=== PATIENT | female | born 1985 | race Caucasian/White ===

== ENCOUNTER 2023-03-30 20:46 | Inpatient (IN) | payer OTHER, MEDICAID, SELFPAY ==
[2023-03-30 20:51] VITALS: BP 126/83; PULSE 65; RESP 18; TEMP 36.8; O2SAT 98
[2023-03-30 20:55] VITALS: BMI 44.8
--- NOTE | 2023-03-30 21:16 | PC.NURSE ---
Pt arrived via EMS transport from [facility], pt is anxious. Appears well kept, is cooperative. Assessment completed.
[2023-03-30] MEDS: BuSPIRONE 10 mg Tablet PO (23:17)
[2023-03-30] MEDS: duloxetine 60 mg Capsule PO (23:17)
[2023-03-30] MEDS: CLONazepam 1 mg Tablet PO (23:17)
[2023-03-30] MEDS: duloxetine 30 mg Capsule PO (23:17)
[2023-03-30] MEDS: mirtazapine 15 mg Tablet PO (23:17)
[2023-03-31 06:00] VITALS: BP 112/77; PULSE 66; RESP 16; O2SAT 93
[2023-03-31] MEDS: duloxetine 30 mg Capsule PO ×2 (08:13→20:08)
[2023-03-31] MEDS: CLONazepam 1 mg Tablet PO ×3 (08:13→20:09)
[2023-03-31] MEDS: BuSPIRONE 10 mg Tablet PO (08:13)
[2023-03-31] MEDS: levothyroxine 125 mcg Tablet PO (09:23)
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
[2023-03-31] MEDS: hyDROXYzine 25 mg Capsule 50 MG PO (12:11)
[2023-03-31 13:29] VITALS: BP 124/82; PULSE 70; RESP 16; TEMP 36.6; O2SAT 98
[2023-03-31] MEDS: propranolol 20 mg Tablet PO (17:55)
[2023-03-31] MEDS: duloxetine 60 mg Capsule PO (20:08)
[2023-03-31] MEDS: lurasidone 20 mg Tablet 40 MG PO (20:09)
[2023-03-31] MEDS: mirtazapine 15 mg Tablet 7.5 MG PO (20:09)
[2023-03-31 20:11] VITALS: BP 127/85; PULSE 77; RESP 18; TEMP 36.5; O2SAT 94
[2023-04-01 06:00] VITALS: BP 116/82; PULSE 76; RESP 18; TEMP 36.7; O2SAT 98
[2023-04-01] MEDS: duloxetine 30 mg Capsule PO (08:39)
[2023-04-01] MEDS: propranolol 20 mg Tablet PO ×2 (08:39→17:10)
[2023-04-01] MEDS: levothyroxine 125 mcg Tablet PO (08:39)
[2023-04-01] MEDS: ARIPiprazole 2 mg Tablet PO (08:39)
[2023-04-01] MEDS: CLONazepam 1 mg Tablet PO ×3 (08:39→21:36)
--- NOTE | 2023-04-01 11:36 | PC.NURSE ---
Pt disclosed to this nurse that she purchased a kitchen knife to use for self harm and has hidden it in her car. Pt disclosed that she does not wish to tell her this information at this time.
[2023-04-01] MEDS: hyDROXYzine 25 mg Capsule 50 MG PO (11:57)
[2023-04-01 14:00] VITALS: BP 128/86; PULSE 91; RESP 17; TEMP 36.4; O2SAT 98
--- NOTE | 2023-04-01 15:49 | P.NPUPN_ITS ---
Subjective NPU Subjective: 38-year-old white female history of borderline personality disorder, chronic suicidal ideation, and major depressive disorder admitted with suicidal ideation with [place] She had reported 7 hospitalizations over the last 12 months. She had reported a history of multiple medication trials. She had continued to endorse feelings of hopelessness. She had acknowledged having recently cut her arm. She had reported that she had been frustrated with not having had DBT therapy yet. She had reported a 1 year waiting list for therapy. She reported some intense feelings of guilt. She had reported that she was doing her best but had really been struggling with her depression. She had reported increased stress at home. She reported that her had been supportive. Mental Status Exam MSE Comments: Casually dressed white female who was overweight, with an unkempt appearance. Her gait was within normal limits. She was cooperative on interview. There was evidence of psychomotor retardation. Her speech was slow with normal prosody and volume. She was alert and oriented to person place time and situation. Her mood was described as depressed. Her affect was restricted in range and mood congruent. Her thought process was linear logical and goal-directed. Her thought content showed no evidence of active homicidal ideation. She had reported suicidal ideation along with thoughts of self injury. There is no clear evidence of delusional thinking. She did not appear to be responding to internal stimuli. There were clear healed cuts on her left wrist. Her impulse control appeared poor. Her insight is poor. Judgment is poor. Her recent and remote memory appeared grossly intact she was a good historian. Her fund of knowledge appeared above average. Vitals/I&O/Wt Last Vital Signs Temp 97.5 F L 04/01/23 14:00 Pulse 91 04/01/23 14:00 Resp 17 04/01/23 14:00 BP 128/86 04/01/23 14:00 Pulse Ox 98 04/01/23 14:00 O2 Del Method Room Air 04/01/23 06:00 Weight last 48 hrs Weight 111.13 kg A&P Assessment and plan (1) Suicidal ideation: (2) Borderline personality disorder: (3) Major depressive disorder, recurrent severe without psychotic features: (4) PTSD (post-traumatic stress disorder): Plan Patient is a 38-year-old white female with chronic suicidality endorsing plan to jump into the [facility] with borderline personality traits, PTSD and major depressive disorder he was unable to contract for safety. She will require inpatient hospitalization at this time with likely adjustment in her medications. 1.?Encourage individual, group and milieu therapy. 2.?Recommend sober living treatment at the highest level of care to which the patient is willing to commit. 3.??? Continue q-15 minute checks for safety.? 4. Discontinued Remeron, tapering latuda now at 20mg at night with discontinuation tommorow. Increase abilify to 5mg daily adjunctively for treatment of depression. 5. Will attempt to gather collateral information. Involuntary Hold Information 96 Hour Hold: 96 Hour Involuntary Admission: No Attestations NPU Medical Necessity Statement*: Inpatient hospitalization is medically necessary and deemed to be the clinically appropriate intervention at this time. We will monitor and adjust medications as indicated. Her likely length of stay is 5 to 7 days. Coding Level of Care Code Acute Code for [facility] Diagnoses Suicidal ideation R45.851 Borderline personality disorder F60.3 Major depressive disorder, recurrent severe without psychotic features F33.2 PTSD (post-traumatic stress disorder) F43.10
[2023-04-01] MEDS: neomycin-poly-bacitracin oint 28 gm 1 APPLIC TOPICAL (17:33)
[2023-04-01] MEDS: ibuprofen 600 mg Tablet PO (18:18)
[2023-04-01 21:13] VITALS: BP 132/95; PULSE 80; RESP 18; O2SAT 97
[2023-04-01] MEDS: duloxetine 30 mg Capsule 90 MG PO (21:37)
[2023-04-01] MEDS: acetaminophen 325 mg Tablet 650 MG PO (21:37)
[2023-04-01] MEDS: lurasidone 20 mg Tablet PO (21:38)
[2023-04-01] MEDS: trazodone 50 mg Tablet PO (23:30)
--- NOTE | 2023-04-02 04:22 | PC.NURSE ---
PT STAYED UP TIL APPROXIMATELY TIL 1200 AM WATCHING TV. PT WAS GIVEN TRAZODONE 50 MG FOR SLEEP. PT HAS RESTED WITHOUT COMPLAINTS SINCE THEN. MEDICATION EFFECTIVE.
[2023-04-02 06:00] VITALS: BP 116/78; PULSE 90; RESP 16; O2SAT 98
[2023-04-02] MEDS: ARIPiprazole 2 mg Tablet 5 MG PO (09:19)
[2023-04-02] MEDS: propranolol 20 mg Tablet PO ×2 (09:20→17:48)
[2023-04-02] MEDS: duloxetine 30 mg Capsule PO (09:20)
[2023-04-02] MEDS: levothyroxine 125 mcg Tablet PO (09:20)
[2023-04-02] MEDS: CLONazepam 1 mg Tablet PO ×3 (09:20→21:08)
[2023-04-02] MEDS: blistex lip oint 7 gm Tube 1 APPLIC TOPICAL (10:10)
[2023-04-02] MEDS: hyDROXYzine 25 mg Capsule 50 MG PO (11:15)
[2023-04-02] MEDS: OLANZapine 5 mg ODT PO (12:10)
--- NOTE | 2023-04-02 12:10 | PC.NURSE ---
Patient reporting anxiedty 04/30. Patient has had Vistaril previoulsy, but this did not alleviate anxiety. Patient reports anxiety caused by feeling guilty for being here instead of at home with her family. Encouraged patient to take some time to practice deep breathing exercises. Administered 5mg Zyprexa to patient. will continue to monitor.
[2023-04-02 14:00] VITALS: BP 126/89; PULSE 120; RESP 17; O2SAT 97
--- NOTE | 2023-04-02 18:07 | P.NPUPN_ITS ---
Subjective NPU Subjective: Patient is in today reporting that she was feeling a little better. She reports that the Cymbalta has been helpful and she has tolerated the changes in medications thus far. We discussed discontinuing the Latuda tomorrow and the risks, benefits and alternatives of switching to Abilify and she understood agreed proceed as documented in this note. We continue to discuss the ultimate plan of getting her in a DBT program. Mental Status Exam MSE Comments: This is an obese [place] obese white female with hospital scrubs with limited grooming and eye contact. No analytics for mild psychomotor retardation. Most cooperative exam in mild distress. Speech was decreased rate and volume. Mood described as okay, affect slightly subdued. Thought process organized. Thought content: Patient denied suicidal or homicidal ideation, there were no delusions reported or noted, she denied any auditory hallucinations. Attention concentration appeared intact and memory was mostly liable but not were formally tested. She alert and oriented x3. Insight and judgment are limited and impulse control is impaired. Vitals/I&O/Wt Last Vital Signs Temp 97.6 F 04/02/23 20:51 Pulse 90 04/02/23 20:51 Resp 17 04/02/23 20:51 BP 136/88 04/02/23 20:51 Pulse Ox 97 04/02/23 20:51 O2 Del Method Room Air 04/02/23 20:51 A&P Assessment and plan (1) Suicidal ideation: (2) Borderline personality disorder: (3) Major depressive disorder, recurrent severe without psychotic features: (4) PTSD (post-traumatic stress disorder): Plan Patient is a 38-year-old white female with chronic suicidality endorsing plan to jump into the [facility] with borderline personality traits, PTSD and major depressive disorder he was unable to contract for safety. She will require inpatient hospitalization at this time with likely adjustment in her medications. 1.?Encourage individual, group and milieu therapy. 2.?Recommend sober living treatment at the highest level of care to which the patient is willing to commit. 3.??? Continue q-15 minute checks for safety.? 4. Discontinued Remeron, tapering latuda now at 20mg at night with discontinuation tomorrow night. Increase abilify to 5mg daily adjunctively for treatment of depression. 5. Will attempt to gather collateral information. Involuntary Hold Information 96 Hour Hold: 96 Hour Involuntary Admission: No Attestations NPU Medical Necessity Statement*: Inpatient hospitalization is medically necessary and deemed to be the clinically appropriate intervention at this time. We will monitor and adjust medications as indicated. Her likely length of stay is 4-6 days. Coding Level of Care Code Acute Code for [facility] Fwd Diagnoses Suicidal ideation R45.851 Borderline personality disorder F60.3 Major depressive disorder, recurrent severe without psychotic features F33.2 PTSD (post-traumatic stress disorder) F43.10
[2023-04-02 20:51] VITALS: BP 136/88; PULSE 90; RESP 17; TEMP 36.4; O2SAT 97
[2023-04-02] MEDS: duloxetine 30 mg Capsule 90 MG PO (21:07)
[2023-04-02] MEDS: lurasidone 20 mg Tablet PO (21:08)
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
[2023-04-02] MEDS: trazodone 50 mg Tablet PO (23:05)
--- NOTE | 2023-04-03 03:23 | PC.NURSE ---
PT REQUESTED TRAZODONE FOR INSOMNIA. PT WAS GIVE TRAZODONE 50 MG ORDERED. PT WENT TO BED SHORTLY AFTER AND HAS BEEN RESTING SINCE. CURRENTLY IN BED SLEEPING. NO DISTRESS NOTED AT THIS TIME.
[2023-04-03 06:00] VITALS: BP 134/82; PULSE 92; RESP 20; TEMP 36.3; O2SAT 98
[2023-04-03] MEDS: levothyroxine 125 mcg Tablet PO (06:16)
[2023-04-03] MEDS: OLANZapine 5 mg ODT PO ×2 (07:13→11:49)
[2023-04-03] MEDS: duloxetine 30 mg Capsule PO (08:17)
[2023-04-03] MEDS: propranolol 20 mg Tablet PO ×2 (08:17→20:17)
[2023-04-03] MEDS: ARIPiprazole 2 mg Tablet 5 MG PO (08:17)
[2023-04-03] MEDS: CLONazepam 1 mg Tablet PO ×3 (08:17→20:17)
[2023-04-03] MEDS: neomycin-poly-bacitracin oint 28 gm 1 APPLIC TOPICAL ×2 (08:18→20:16)
[2023-04-03] MEDS: hyDROXYzine 25 mg Capsule 50 MG PO ×2 (13:56→21:51)
[2023-04-03 14:00] VITALS: BP 104/70; PULSE 78; RESP 16; TEMP 36.6; O2SAT 97
--- NOTE | 2023-04-03 14:40 | P.NPUPN_ITS ---
Subjective NPU Subjective: Patient presented today reporting that she feels that she is getting better. She is working with the social work team to make sure that DBT therapy is available at discharge. We agree that we would discharge her in the morning but were able to advise her that there is a knife in the vehicle but he is going to pick her up and go to the vehicle himself prior to her having access again. She reports that she feels better overall and is looking forward to discharge tomorrow morning. Mental Status Exam MSE Comments: This is an obese [place] obese white female with hospital scrubs with limited grooming and eye contact. No analytics for mild psychomotor retardation. Most cooperative exam in mild distress. Speech was decreased rate and volume. Mood described as okay, affect slightly subdued. Thought process organized. Thought content: Patient denied suicidal or homicidal ideation, there were no delusions reported or noted, she denied any auditory hallucinations. Attention concentration appeared intact and memory was mostly liable but not were formally tested. She alert and oriented x3. Insight and judgment are limited and impulse control is impaired. Vitals/I&O/Wt Last Vital Signs Temp 97.4 F L 04/03/23 06:00 Pulse 92 04/03/23 06:00 Resp 20 H 04/03/23 06:00 BP 134/82 04/03/23 06:00 Pulse Ox 98 04/03/23 06:00 O2 Del Method Room Air 04/03/23 06:00 A&P Assessment and plan (1) Suicidal ideation: (2) Borderline personality disorder: (3) Major depressive disorder, recurrent severe without psychotic features: (4) PTSD (post-traumatic stress disorder): Plan Patient is a 38-year-old white female with chronic suicidality endorsing plan to jump into the [facility] with borderline personality traits, PTSD and major depressive disorder he was unable to contract for safety. She will require inpatient hospitalization at this time with likely adjustment in her medications. 1.?Encourage individual, group and milieu therapy. 2.?Recommend sober living treatment at the highest level of care to which the patient is willing to commit. 3.??? Continue q-15 minute checks for safety.? 4. Discontinued Remeron, tapering latuda continued 04/02/2023. Increased abilify to 5mg daily adjunctively for treatment of depression. 5. Will attempt to gather collateral information. Involuntary Hold Information 96 Hour Hold: 96 Hour Involuntary Admission: No Attestations NPU Medical Necessity Statement*: Inpatient hospitalization is medically necessary and deemed to be the clinically appropriate intervention at this time. We will monitor and adjust medications as indicated. Her likely length of stay is 1-3 days. Coding Level of Care Code Acute Code for [facility] Fwd Diagnoses Suicidal ideation R45.851 Borderline personality disorder F60.3 Major depressive disorder, recurrent severe without psychotic features F33.2 PTSD (post-traumatic stress disorder) F43.10
[2023-04-03] MEDS: duloxetine 30 mg Capsule 90 MG PO (20:17)
[2023-04-03 20:43] VITALS: BP 122/86; PULSE 111; RESP 18; TEMP 36.6; O2SAT 98
[2023-04-03] MEDS: ibuprofen 600 mg Tablet PO (21:51)
[2023-04-03] MEDS: trazodone 50 mg Tablet PO (23:51)
[2023-04-04] MEDS: trazodone 50 mg Tablet PO (00:41)
[2023-04-04] MEDS: OLANZapine 5 mg ODT PO (00:41)
[2023-04-04 06:00] VITALS: BP 112/74; PULSE 83; RESP 16; O2SAT 98
[2023-04-04] MEDS: hyDROXYzine 25 mg Capsule 50 MG PO (07:26)
[2023-04-04] MEDS: levothyroxine 125 mcg Tablet PO (07:27)
[2023-04-04] MEDS: ARIPiprazole 2 mg Tablet 5 MG PO (08:40)
[2023-04-04] MEDS: CLONazepam 1 mg Tablet PO (08:42)
[2023-04-04] MEDS: propranolol 20 mg Tablet PO (08:42)
[2023-04-04] MEDS: duloxetine 30 mg Capsule PO (08:42)
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
[2023-04-04 08:58] VITALS: BP 112/74; PULSE 83; RESP 16; O2SAT 98
== END 2023-04-04 10:11 | disposition home or self-care (01) | DRG 885 ==
PROVIDERS: Admitting Provider Psychiatry & Neurology Psychiatry; Visit Provider Psychiatry & Neurology Psychiatry
DX: F33.2 Major depressive disorder, recurrent severe without psychotic features (principal); R45.851 Suicidal ideations; F60.3 Borderline personality disorder; F43.10 Post-traumatic stress disorder, unspecified; Z62.810 Personal history of physical and sexual abuse in childhood; Z62.811 Personal history of psychological abuse in childhood; F17.290 Nicotine dependence, other tobacco product, uncomplicated
CPT/HCPCS: 97150; 97165; 99238